=== PATIENT | female | born 1990 | race African-American/Black ===

== ENCOUNTER 2019-08-15 13:34 | Inpatient (IN) | payer BC ==
[2019-08-15 14:39] VITALS: BMI 17.6
--- NOTE | 2019-08-15 15:31 | HP ---
PRIMARY CARE PROVIDER: Unknown. CHIEF COMPLAINT: Bloody diarrhea. HISTORY OF PRESENT ILLNESS: Ms. Alvarenga is a pleasant 29-year-old lady who was seen at [facility] after she was sent here as a direct admission from [facility] on August 15, 2019. She was diagnosed with ulcerative colitis approximately a year ago. She initially was treated with mesalamine, subsequently with Entyvio. She showed good response. However, over the last month, she has had flare of ulcerative colitis. She reports abdominal cramping and bloody diarrhea. She also reports nausea, but no vomiting. She also reports losing 17 pounds over the last month. She reports generalized weakness. She denies any chest pain or shortness of breath. She has been using prednisone and mesalamine enemas as outpatient without significant relief. She was seen in the [facility]ology [facility] today and sent to the hospital for admission. REVIEW OF SYSTEMS: All systems were reviewed and found to be negative except for the pertinent positives mentioned above. PAST MEDICAL HISTORY: Ulcerative colitis. PAST SURGICAL HISTORY: None. SOCIAL HISTORY: No history of tobacco use, alcohol use, or recreational drug use. FAMILY HISTORY: Inflammatory bowel disease in her mother. ALLERGIES: NO KNOWN DRUG ALLERGIES. HOME MEDICATIONS: 1. Bentyl 40 mg 3 times a day. 2. Mesalamine 1.2 g two times a day. 3. Mesalamine cleansing wipes daily. 4. Blisovi 1.5/30 mg tablet daily. 5. Prednisone 40 mg daily. PHYSICAL EXAMINATION: GENERAL: On examination, Ms. Alvarenga is awake and alert, not in acute distress. VITAL SIGNS: Blood pressure is 118/80, pulse is 59, respiratory rate 14, and oxygen saturation 100% on room air. She is afebrile. EYES: No scleral icterus, no conjunctival pallor. ENT: Dry mucosal membranes. No oropharyngeal erythema or exudates. NECK: Supple, nontender, trachea is midline. RESPIRATORY: Accessory muscles of breathing are not active. Chest wall movements are symmetric bilaterally. LUNGS: Clear to auscultation without wheeze, rhonchi, or crepitations. CARDIOVASCULAR: S1 and S2 are heard, regular. Peripheral pulses palpable. ABDOMEN: Soft, nontender, bowel sounds are heard. NEUROLOGIC: Cranial nerves 2 through 12 are intact. MUSCULOSKELETAL: Power is 5/5 in all 4 extremities. SKIN: No rashes or subcutaneous nodules. LYMPHATIC: No cervical lymphadenopathy. PSYCHIATRIC: Normal mood, normal affect, the patient is oriented to person, place, and time. BODY HABITUS: Malnourished, with a BMI of 17.7. LABORATORY DATA: Ms. Alvarenga's labs and investigations were reviewed. There has been no recent blood work done at this hospital. ASSESSMENT AND PLAN: Ms. Alvarenga is a pleasant 29-year-old lady who was seen at [facility] on August 15, 2019. Her problem list includes: 1. Bloody diarrhea: Most likely secondary to ulcerative colitis flare. She will be admitted to the hospital for further management. GI Service will be consulted. She will be started on intravenous fluids and intravenous steroids. We will check blood work including a test, CBC, comprehensive metabolic profile, C-reactive protein, ESR, and QuantiFERON. 2. Moderate protein-calorie malnutrition: Most likely secondary to ulcerative colitis flare. We will consult dietitian for opinion and help with management. 3. Regular diet, vital signs q.4 hours. LEVEL OF RISK: Moderate. LEVEL OF COMPLEXITY: Moderate. Job ID: [id number]
--- NOTE | 2019-08-15 15:31 | CON ---
DATE OF CONSULTATION: 08/15/2019 REASON FOR CONSULTATION: Ulcerative colitis flare. HISTORY OF PRESENT ILLNESS: Mark Alvarenga is a very pleasant 29-year-old woman whom I met back in the summer of 2017. At that time, she had developed gradually worsening diarrhea and hematochezia with negative stool pathogens PCR panel. I performed EGD and colonoscopy in February 2018. The EGD was normal with no evidence of celiac disease, but the colonoscopy showed severe colitis from 0 to 15 cm, then more [id number] colitis throughout the rest of the colon, sparing only the cecum and the terminal ileum. We initially treated with Lialda and a course of prednisone and the patient had some temporary improvement, however, over the next several months, she required multiple prednisone tapers. We finally got her started on Entyvio on 11/13/2018. She initially had great improvement with the Entyvio, her weight stabilized. Abdominal pain and hematochezia resolved. As of mid June, she was still doing quite well. We have had her on every 8 week dosing of Entyvio and also continuing Lialda 4.8 g daily. However, just over the past month or so, the patient has had significant worsening. She started having daily generalized abdominal pain, diarrhea with at least 7 to 8 bowel movements per day and blood with all of her bowel movements. We again checked stool studies on 08/09, which showed a negative stool pathogen panel, but stool WBCs and fecal calprotectin were both elevated with fecal calprotectin at 625.5. She went to the ER in [place] and had a CT of the abdomen and pelvis, which looked okay and evidently labs were unremarkable at that time. We put her on prednisolone 40 mg daily, but despite this, and despite her last Entyvio infusion just being a couple of weeks ago, she has not had any symptomatic improvement. She has lost some weight. She is unable to really leave the house due to the severity for diarrhea. We saw her in clinic today and made the decision to admit to the hospital for IV steroids. REVIEW OF SYSTEMS: Full review of systems including constitutional, head, eyes, ears, nose, throat, GI, , cardiovascular, respiratory, musculoskeletal, and neurologic systems is negative except as noted in the HPI. PAST MEDICAL HISTORY: Asthma, vitamin D deficiency, and ulcerative colitis diagnosed in February 2018. ALLERGIES: NO KNOWN DRUG ALLERGIES. OUTPATIENT MEDICATIONS: 1. Entyvio 300 mg IV every 8 weeks. 2. Mesalamine 4.8 g daily. 3. Mesalamine enemas 4 g one enema per rectum at bedtime. 4. Prednisone 40 mg daily. 5. Dicyclomine 10 mg t.i.d. 6. Oral contraceptive. SOCIAL HISTORY: Alcohol use is occasional. No smoking. No drug use. Her parents have come down to stay with her after she did pretty poorly at home over the holidays. FAMILY HISTORY: Mother has IBS, but no family history of inflammatory bowel disease or GI malignancy. PHYSICAL EXAMINATION: VITAL SIGNS: Temperature 98.2, pulse of 59, blood pressure 118/80, oxygen saturation 100% on room air. GENERAL: A 29-year-old woman, healthy, slender, in no acute distress. SKIN: No rash. No jaundice. EYES: No scleral icterus. Extraocular movements intact. ENT: Mucous membranes moist. No oral lesions. LYMPH: No submandibular or supraclavicular lymphadenopathy. THYROID: Nontender to palpation. HEART: Regular rate and rhythm. LUNGS: Clear to auscultation bilaterally. ABDOMEN: Flat. Bowel sounds present. Soft. Diffuse tenderness to palpation, but no guarding or rebound tenderness. EXTREMITIES: No peripheral edema. VESSELS: Radial pulses 2+ bilaterally. NEURO: Cranial nerves 2 through 12 intact bilaterally. No focal deficits. LABORATORY STUDIES: Recent stool studies over the past month as detailed in the HPI. ASSESSMENT AND PLAN: 1. Ulcerative colitis flare. 2. Hematochezia, secondary to ulcerative colitis flare. 3. Abdominal pain, secondary to ulcerative colitis flare. The patient did well with Entyvio over the past 8 to 9 months until this recent flare over the past few weeks. Due to the severity of her symptoms, we are admitting her for IV steroids. We will start her on IV Solu-Medrol 40 mg every 6 hours. With negative stool studies and characteristic symptoms, I do not really see much point to repeating colonoscopy at this time. We will give her a regular diet. We discussed that given that her recent Entyvio trough levels were therapeutic with negative antibodies, it appears the Entyvio has simply lost effectiveness and that we will need to switch to a different biologic agent. We will be working on getting her switched over to Remicade, hopefully at 10 mg/kg dosing, within the next week or two, expect she will respond to the IV steroids over the next few days in the meantime. Job ID: [id number]
[2019-08-15 15:50] LABS: #Eosinphils 0.2 thou/uL (0.0-0.7); #Lymphocytes 3.1 thou/uL (1.20-3.40); #Monocytes 0.6 thou/uL (0.11-0.59); #Neutrophils 3.5 thou/uL (1.40-6.50); %Basophils 0.5 % (0.0-1.0); %Eosinophils 2.5 % (0.0-10.0); %Lymphocytes 42.1 % (21.0-51.0); %Monocytes 7.9 % (0.0-10.0); %Neutrophils 46.9 % (42.0-75.0); Hemoglobin 13.3 g/dL (12.0-16.0); Mean Corpuscular HGB CONC 32.8 g/dL (32.0-36.0); Mean Corpuscular Hemoglobin 28.4 pg (27.0-31.0); Mean Corpuscular Volume 86.7 fL (78.0-98.0); Mean Platelet Volume 7.6 fL (7.4-10.4); Platelet Count 320 thou/uL (130-400); RBC Distribution Width 12.3 % (11.5-14.5); Red Blood Cell (RBC) Count 4.67 mill/uL (4.20-5.40); White Blood Cell (WBC) Count 7.4 thou/uL (4.8-10.8)
[2019-08-15 15:55] LABS: BHCG - Serum Negative (NEGATIVE); Pregs Control Background? CLEAR/WHITE (CLR/WHITE); Pregs Control Bar Appear? YES (CONTROL BAR)
[2019-08-15 16:11] LABS: ALT (SGPT) 7 U/L (8-55); AST (SGOT) 11 U/L (5-34); Albumin 3.6 g/dL (3.5-5.0); Alkaline Phosphatase 52 U/L (40-110); Anion Gap 13 mmol/L (10-20); BUN (Urea Nitrogen) 13 mg/dL (7.0-18.7); Bilirubin, Total 0.3 mg/dL (0.2-1.2); Calc. Creatinine Clearance 77 mL/min (70-130); Calcium 8.7 mg/dL (7.8-10.44); Carbon Dioxide 26 mmol/L (22-29); Chloride 103 mmol/L (98-107); Estimated GFR-MDRD Greater than 90; Globulin 3.3 g/dL (2.4-3.5); Glucose 75 mg/dL (70-105); Potassium 3.6 mmol/L (3.5-5.1); Protein, Total 6.9 g/dL (6.0-8.3); Sodium 138 mmol/L (136-145)
[2019-08-15] MEDS: Sodium Chloride 0.9% 1,000 ML IV SCH ×2 (16:19→20:15)
[2019-08-15] MEDS: methylPREDNISolone Sod Succ 40 MG VIAL IVP SCH (18:00)
[2019-08-15] MEDS: Morphine 2 MG/ML SYRINGE SLOW IVP PRN (20:16)
[2019-08-16] MEDS: methylPREDNISolone Sod Succ 40 MG VIAL IVP SCH ×5 (00:20→23:07)
[2019-08-16 05:23] LABS: #Lymphocytes 0.4 thou/uL (1.20-3.40); #Monocytes 0.1 thou/uL (0.11-0.59); #Neutrophils 8.5 thou/uL (1.40-6.50); %Lymphocytes 4.8 % (21.0-51.0); %Monocytes 1.5 % (0.0-10.0); %Neutrophils 93.7 % (42.0-75.0); Hemoglobin 11.6 g/dL (12.0-16.0); Mean Corpuscular HGB CONC 32.8 g/dL (32.0-36.0); Mean Corpuscular Hemoglobin 28.4 pg (27.0-31.0); Mean Corpuscular Volume 86.6 fL (78.0-98.0); Mean Platelet Volume 7.8 fL (7.4-10.4); Platelet Count 282 thou/uL (130-400); RBC Distribution Width 12.3 % (11.5-14.5); Red Blood Cell (RBC) Count 4.06 mill/uL (4.20-5.40); White Blood Cell (WBC) Count 9.1 thou/uL (4.8-10.8)
[2019-08-16 05:48] LABS: Anion Gap 10 mmol/L (10-20); BUN (Urea Nitrogen) 12 mg/dL (7.0-18.7); Calc. Creatinine Clearance 88 mL/min (70-130); Calcium 8.5 mg/dL (7.8-10.44); Carbon Dioxide 26 mmol/L (22-29); Chloride 106 mmol/L (98-107); Estimated GFR-MDRD Greater than 90; Glucose 113 mg/dL (70-105); Potassium 4.4 mmol/L (3.5-5.1); Sodium 138 mmol/L (136-145)
--- NOTE | 2019-08-16 08:28 | PDOC.HOSPP ---
- Subjective Encounter Date: 08/16/19 (f/u UC flare) Encounter Time: 08:26 Subjective: Pt reports more back pain today - has been occuring over past few weeks, but noticing more. States stool is better -less bloody, less frequent and last one more formed. Denies any dysuria/hematuria - Objective Vital Signs & Weight: Vital Signs (12 hours) Temp Pulse Resp BP BP Pulse Ox 08/16/19 08:00 100 08/16/19 07:26 97.7 F 69 16 97/56 L 100 08/16/19 04:03 97.6 F 65 14 100/67 100 08/16/19 00:02 97.8 F 70 14 95/61 100 Weight Weight 113 lb I&O: 08/15/19 08/16/19 08/17/19 06:59 06:59 06:59 Intake Total 1000 1680 Balance 1000 1680 Result Diagrams: 08/16/19 05:08 08/16/19 05:08 Hospitalist ROS - Medication Medications: Active Medications Generic Name Dose Route Start Last Admin Trade Name Charbelq PRN Reason Stop Dose Admin Methylprednisolone Sodium Succinate 40 mg 08/15/19 18:00 08/16/19 06:44 Solu-Medrol IVP 40 mg Q6HR ENID Administration Morphine Sulfate 2 mg 08/15/19 19:11 08/15/19 20:16 Morphine SLOW IVP 2 mg Q4H PRN Administration Pain - Exam General Appearance: NAD Heart: RRR, no murmur, no gallops, no rubs Respiratory: CTAB, no wheezes, no rales, no ronchi Gastrointestinal: soft, non-distended, normal bowel sounds Extremities: no cyanosis, no clubbing, no edema Extremities - other findings: back - mild ttp along lower lumbar paraspinal muscles Musculoskeletal: normal tone Psychiatric: normal affect Hosp A/P (1) Ulcerative colitis Code(s): K51.90 - ULCERATIVE COLITIS, UNSPECIFIED, WITHOUT COMPLICATIONS Status: Acute Qualifiers: Ulcerative colitis location: unspecified ulcerative colitis location (2) Anemia Code(s): D64.9 - ANEMIA, UNSPECIFIED Status: Acute (3) Back pain Code(s): M54.9 - DORSALGIA, UNSPECIFIED Status: Acute - Plan UC - appreciate GI consult - on IV steroids Adequately taking PO - d/c IVF Weakness - PT back pain - check UA and order lidocaine patch dvt prophy - ambulatory and scd's gi prophy - not indicated code status full reviewed plan of care with patient/family, no questions or furtehr needs at end of eval
[2019-08-16] MEDS ORDERED: FLU VACC QS2019-20(6MOS UP)/PF 60 MCG/0.5 ML SYRINGE IM ONE (09:00)
[2019-08-16] MEDS: Lidocaine 5% Patch TD SCH (09:54)
[2019-08-16 10:57] LABS: Bilirubin Negative (Negative); Blood, Urine Negative (Negative); Clarity Clear (Clear); Glucose, Urine (Dipstick) 300 mg/dL (Negative); Leukocyte Negative Leu/uL (Negative); Nitrite Negative (Negative); Protein, Urine (Dipstick) 10 mg/dL (Neg-Trace); RBC/HPF 0-3 HPF (0-3); Squamous Epithelial 0-3 HPF (0-3); Urobilinogen Normal mg/dL (Less than 2); WBC/HPF 0-3 HPF (0-3)
[2019-08-16 10:58] LABS: Bacteria/HPF 1+ HPF (None Seen)
[2019-08-16 10:59] LABS: Urine Culture Reflex Yes Yes
--- NOTE | 2019-08-16 14:13 | PRG ---
DATE OF SERVICE: 08/16/2019 SUBJECTIVE: Mark is feeling a bit better today. She has had 5 episodes of hematochezia since midnight, which she feels is slowing down a bit. Abdominal discomfort is better, but she has been having some back pain. She has otherwise remained hemodynamically stable and tolerating her diet. OBJECTIVE: VITAL SIGNS: Temperature 98.0, pulse 83, blood pressure 103/72, 100% oxygen saturation on room air. GENERAL: No acute distress. HEART: Regular rate and rhythm. LUNGS: Clear to auscultation bilaterally. ABDOMEN: Bowel sounds are present. Soft, nontender to palpation. EXTREMITIES: No peripheral edema. LABORATORY STUDIES: Hemoglobin 11.6, WBC 9.1, platelets 282. ESR 33. Sodium 138, potassium 4.4, BUN 12, creatinine 0.78. Serum test is negative. CRP is 1.50. LFTs were all normal on admission yesterday with total bilirubin 0.3, alkaline phosphatase 52, AST 11, ALT 7. ASSESSMENT AND PLAN: 1. Ulcerative colitis flare. 2. Hematochezia, secondary to ulcerative colitis flare. 3. Abdominal pain, secondary to ulcerative colitis flare, mildly improved. The patient is finishing up day 1 of IV steroids, with some possible mild improvement, but ongoing hematochezia. We will continue with the IV steroids for now. If she continues to have gradual improvement, we will not plan on repeat colonoscopy this admission. However, if there is no improvement over the next day, could consider colonoscopy this weekend with biopsies to rule out CMV. Hopefully, she will have further improvement over the next 2 to 3 days and be able to be discharged back on prednisolone 40 mg daily. We are still working on getting her transition from Entyvio to Remicade in the outpatient setting within the next week or two. 4. Dr. Troncoso is covering for GI this weekend. Job ID: [id number]
[2019-08-16] MEDS: Lidocaine Patch Removal 1 EACH TOP SCH (20:58)
[2019-08-16] MEDS: Morphine 2 MG/ML SYRINGE SLOW IVP PRN (22:20)
[2019-08-17] MEDS: methylPREDNISolone Sod Succ 40 MG VIAL IVP SCH ×4 (05:55→23:01)
[2019-08-17 07:03] LABS: Anion Gap 12 mmol/L (10-20); BUN (Urea Nitrogen) 9 mg/dL (7.0-18.7); Calc. Creatinine Clearance 94 mL/min (70-130); Carbon Dioxide 25 mmol/L (22-29); Chloride 105 mmol/L (98-107); Estimated GFR-MDRD Greater than 90; Glucose 123 mg/dL (70-105); Potassium 3.8 mmol/L (3.5-5.1); Sodium 138 mmol/L (136-145)
[2019-08-17 07:48] LABS: Band 13 % (5-11); Hemoglobin 12.1 g/dL (12.0-16.0); Lymphocytes 12 % (21-51); MDiff Complete? YES; Mean Corpuscular HGB CONC 33.8 g/dL (32.0-36.0); Mean Corpuscular Volume 85.9 fL (78.0-98.0); Mean Platelet Volume 7.9 fL (7.4-10.4); Monocytes 3 % (0-10); Neutrophil 72 % (42-75); Platelet Count 321 thou/uL (130-400); RBC Distribution Width 12.2 % (11.5-14.5); Red Blood Cell (RBC) Count 4.17 mill/uL (4.20-5.40); White Blood Cell (WBC) Count 12.2 thou/uL (4.8-10.8)
[2019-08-17] MEDS ORDERED: [UNRECOGNIZED DRUG - OTHER] TOP PRN (08:54)
[2019-08-17] MEDS ORDERED: Acetaminophen 325 MG TAB PO PRN (08:54)
[2019-08-17] MEDS ORDERED: VITAMIN A TOP PRN (08:54)
[2019-08-17] MEDS ORDERED: HYDROcodone/Acetaminophen 5/325 mg Tablet PO PRN (08:54)
--- NOTE | 2019-08-17 08:58 | PDOC.HOSPP ---
- Subjective Encounter Date: 08/17/19 (f/u colitis) Encounter Time: 08:56 Subjective: Pt reports less blood in bm's, more bm's. Back pain improved and able to ambulate and work with PT. Appetite improved and able to take PO yesterday. Some gas pain earlier today-before and with passing it. - Objective Vital Signs & Weight: Vital Signs (12 hours) Temp Pulse Resp BP Pulse Ox 08/17/19 07:36 98.0 F 73 16 107/71 99 08/17/19 03:20 97.9 F 85 18 103/68 98 08/16/19 23:00 98.0 F 75 18 99/64 98 Weight Admit Weight 113 lb Weight 113 lb I&O: 08/16/19 08/17/19 08/18/19 06:59 06:59 06:59 Intake Total 1000 2930 Balance 1000 2930 Result Diagrams: 08/17/19 06:04 08/17/19 06:04 Hospitalist ROS - Medication Medications: Active Medications Generic Name Dose Route Start Last Admin Trade Name Freq PRN Reason Stop Dose Admin Lidocaine 1 patch 08/16/19 09:00 08/16/19 09:54 Lidoderm 5% Patch TD 1 patch 0900 ENID Administration Methylprednisolone Sodium Succinate 40 mg 08/15/19 18:00 08/17/19 05:55 Solu-Medrol IVP 40 mg Q6HR ENID Administration Miscellaneous Medication 1 each 08/16/19 21:00 08/16/19 20:58 Lidocaine Patch Removal TOP 1 each 2100 ENID Administration Morphine Sulfate 2 mg 08/15/19 19:11 08/16/19 22:20 Morphine SLOW IVP 2 mg Q4H PRN Administration Pain - Exam General Appearance: NAD Heart: RRR, no murmur Respiratory: CTAB, no wheezes, no rales, no ronchi Gastrointestinal: soft, non-distended, normal bowel sounds Gastrointestinal - other findings: mild ttp, no palpable abnormalities Extremities: no cyanosis, no clubbing, no edema Musculoskeletal: normal tone Psychiatric: normal affect Hosp A/P (1) Ulcerative colitis Code(s): K51.90 - ULCERATIVE COLITIS, UNSPECIFIED, WITHOUT COMPLICATIONS Status: Acute Qualifiers: Ulcerative colitis location: unspecified ulcerative colitis location (2) Anemia Code(s): D64.9 - ANEMIA, UNSPECIFIED Status: Acute (3) Back pain Code(s): M54.9 - DORSALGIA, UNSPECIFIED Status: Acute - Plan UC - sx improved - appreciate GI consult - on IV steroids, transition to prednisone per GI Add simethicone prn Add tylenol and norco as additional options to manage pain heating pad for abdomen prn vitamin a&d ointment prn UA unremarkable for infection yesterday - follow culture that was performed reflexively dvt prophy - ambulatory and scd's gi prophy - not indicated code status full anticipate discharge when able to transition to prednisone - in the next few days
[2019-08-17] MEDS: HYDROcodone/Acetaminophen 5/325 mg Tablet PO PRN ×3 (09:39→23:29)
[2019-08-17] MEDS: Simethicone Chewable 80 MG TAB PO PRN ×2 (09:39→15:12)
[2019-08-17] MEDS: Lidocaine 5% Patch TD SCH (10:14)
--- NOTE | 2019-08-17 16:34 | PRG ---
DATE OF SERVICE: 08/17/2019 REASON FOR CONSULTATION: Ulcerative colitis flare. SUBJECTIVE: The patient states that she is feeling better today with decreased abdominal pain when compared to yesterday and now reaches a severity of 3 to 4/10. She also has had approximately 6 bowel movements over the last 24 hours, which has decreased in terms of her frequency as well as the amount of blood per bowel movement has also decreased as well. She has been able to get out of bed and ambulate both by herself and with physical therapy. Otherwise, she denies any nausea, vomiting, fevers, chills, hematemesis, melena, dysphagia, or odynophagia. OBJECTIVE: VITAL SIGNS: Temperature 98, pulse 86, blood pressure 98/59, respiratory rate 16, saturating 99% on room air. GENERAL: The patient was lying in bed, in no acute distress. Alert and oriented x4. CARDIOVASCULAR: Regular rate and rhythm. RESPIRATORY: Clear to auscultation bilaterally. ABDOMEN: Normoactive bowel sounds. Soft, nondistended, mild tenderness to palpation in all abdominal quadrants. EXTREMITIES: No cyanosis, clubbing, or edema. LABORATORY DATA: CBC with a white blood cell count of 12.2, hemoglobin 12.1, hematocrit 35.8, platelets 321. Chemistry with a sodium of 138, potassium 3.8, chloride 105, CO2 of 25, BUN 9, creatinine 0.73, glucose 123. IMAGING DATA: No current GI imaging is available for review. ASSESSMENT AND PLAN: The patient is a 29-year-old female with past medical history of ulcerative colitis, presenting with a probable ulcerative colitis flare. Ulcerative colitis flare. The patient is presenting with a recent history of oral steroids as an outpatient in addition to biologic therapy (Entyvio) and had continued to have worsening abdominal pain and hematochezia despite these measures. She was ultimately admitted to the hospital for probably ulcerative colitis flare and has been responding well to administration of IV steroids indicated by decreased frequency of bowel movements, decreased abdominal pain, and decreased frequency of hematochezia. At this time, colonoscopy is not currently planned, given her improvement with IV steroids, which should be worsening if the presence of CMV or HSV is within her colon. RECOMMENDATIONS: 1. Would continue to trend her H and H and transfuse as necessary to maintain H and H of 7/21. 2. Continue to monitor clinically for signs of active GI bleeding. 3. Would continue with IV steroid administration with methylprednisolone 40 mg q.6. 4. Pain control per primary team. 5. Would avoid any NSAIDs during this admission. We will continue to follow. Please call with any questions. Job ID: [id number]
[2019-08-17] MEDS: Lidocaine Patch Removal 1 EACH TOP SCH (22:12)
[2019-08-18] MEDS: Simethicone Chewable 80 MG TAB PO PRN ×3 (04:12→15:57)
[2019-08-18] MEDS: methylPREDNISolone Sod Succ 40 MG VIAL IVP SCH ×4 (05:43→23:03)
--- NOTE | 2019-08-18 09:20 | PDOC.HOSPP ---
- Subjective Encounter Date: 08/18/19 (f/u UC flare) Encounter Time: 09:18 Subjective: 29 y/o female admitted on Aug 15 for severe ulcerative colitis flare despite trial of outpatient management. Pt denies any pain currently, reports she feels better than she has in weeks. Denies any n/v. 6 bm's yesterday, less blood. Having episodes of abd pain/ cramping/gas pain that last a few hours. - Objective Vital Signs & Weight: Vital Signs (12 hours) Temp Pulse Resp BP BP Pulse Ox 08/18/19 07:51 97.9 F 67 14 105/68 99 08/18/19 03:29 98.3 F 64 18 103/64 97 08/17/19 23:18 98.0 F 66 18 117/76 98 08/17/19 21:46 98.5 F 68 18 109/72 98 Weight Admit Weight 113 lb Weight 113 lb I&O: 08/17/19 08/18/19 08/19/19 06:59 06:59 06:59 Intake Total 2930 2440 Balance 2930 2440 Result Diagrams: 08/17/19 06:04 08/17/19 06:04 Hospitalist ROS - Medication Medications: Active Medications Generic Name Dose Route Start Last Admin Trade Name Freq PRN Reason Stop Dose Admin Hydrocodone Bitart/Acetaminophen 2 tab 08/17/19 08:54 08/17/19 23:29 [place] 5/325 PO 2 tab Q4H PRN Administration Moderate to Severe Pain (6-10) Lidocaine 1 patch 08/16/19 09:00 08/17/19 10:14 Lidoderm 5% Patch TD 1 patch 0900 ENID Administration Methylprednisolone Sodium Succinate 40 mg 08/15/19 18:00 08/18/19 05:43 Solu-Medrol IVP 40 mg Q6HR ENID Administration Miscellaneous Medication 1 each 08/16/19 21:00 08/17/19 22:12 Lidocaine Patch Removal TOP 1 each 2099 ENID Administration Morphine Sulfate 2 mg 08/15/19 19:11 08/16/19 22:20 Morphine SLOW IVP 2 mg Q4H PRN Administration Pain Simethicone 80 mg 08/17/19 08:54 08/18/19 04:12 Mylicon Chewable PO 80 mg PCHS PRN Administration Gas Pain - Exam General Appearance: NAD Heart: RRR, no murmur Respiratory: CTAB, no wheezes, no rales, no ronchi Gastrointestinal: soft, non-tender, non-distended Extremities: no cyanosis, no clubbing, no edema Psychiatric: normal affect Hosp A/P (1) Ulcerative colitis Code(s): K51.90 - ULCERATIVE COLITIS, UNSPECIFIED, WITHOUT COMPLICATIONS Status: Acute Qualifiers: Ulcerative colitis location: unspecified ulcerative colitis location (2) Anemia Code(s): D64.9 - ANEMIA, UNSPECIFIED Status: Acute (3) Back pain Code(s): M54.9 - DORSALGIA, UNSPECIFIED Status: Acute (4) Underweight Code(s): R63.6 - UNDERWEIGHT Status: Acute - Plan UC - appreciate GI consultcontinues to improve - adjustment of IV to PO steroids per GI Continue current meds recheck CBC f/u request to media monitor for guidance on diet Urine culture - obtained due to back pain - young culture. Pt is asx, will continue to monitor. No indication for antibiotics at this time. Reviewed this evening and final result mixed skin roseline. dvt prophy - ambulatory and scd's gi prophy - not indicated code status full anticipate discharge in the next few days per GI
[2019-08-18] MEDS: Lidocaine 5% Patch TD SCH (09:27)
--- NOTE | 2019-08-18 11:47 | PRG ---
DATE OF SERVICE: 08/18/2019 REASON FOR CONSULTATION: Ulcerative colitis flare. SUBJECTIVE: The patient states that her abdominal pain is improved when compared to yesterday, now currently reaching a severity of 1/10, especially with increased physical activity. She also notes that she has had approximately 4 semi-solid stools over the last 24 hours, although one last night was a larger bloody bowel movement. The amount of blood on the subsequent bowel movements has been lessened as well. Otherwise, she denies any nausea, vomiting, fevers, chills, hematemesis, melena, dysphagia or odynophagia. OBJECTIVE: VITAL SIGNS: Temperature 97.9, pulse 67, blood pressure 105/68, respiratory rate 14, and saturating 99% on room air. GENERAL: The patient was lying in bed, in no acute distress. Alert and oriented x4. CARDIOVASCULAR: Regular rate and rhythm. RESPIRATORY: Clear to auscultation bilaterally. ABDOMEN: Normoactive bowel sounds. Soft, nondistended, mild tenderness to palpation in the lower abdominal quadrants. EXTREMITIES: No cyanosis, clubbing, or edema. LABORATORY DATA: No current labs are available for review. IMAGING DATA: No current GI imaging is available for review. ASSESSMENT AND PLAN: The patient is a 29-year-old female with past medical history of ulcerative colitis, presenting with an ulcerative colitis flare. Ulcerative colitis flare. The patient is presenting with worsening abdominal pain, diarrhea, and hematochezia over the last 4 to 6 weeks consistent with an ulcerative colitis flare. However, since being admitted to the hospital and placed on IV steroids, she has had significant improvement in her abdominal pain, hematochezia, and diarrhea, indicating response to treatment and likely not an infectious etiology contributing to her current flare. At the current time, colonoscopy is not planned given her improvement with IV steroids and would be reserved only if the patient does not continue to improve. RECOMMENDATIONS: 1. We would continue to trend her H and H and transfuse as necessary to maintain an H and H of 7/21. 2. Continue to monitor clinically for signs of active GI bleeding. 3. We would continue IV methylprednisolone 40 mg q.6 with plans to transfer the patient to oral prednisone possibly tomorrow. 4. Pain control per primary team. 5. Would avoid any NSAIDs during this admission. 6. Would avoid a higher fiber diet as well given the propensity to increase intraluminal gas and thereby increased pain/bloating. We will continue to follow. Please call with any questions. Job ID: [id number]
[2019-08-18] MEDS: HYDROcodone/Acetaminophen 5/325 mg Tablet PO PRN (18:25)
[2019-08-18] MEDS: Lidocaine Patch Removal 1 EACH TOP SCH (22:39)
[2019-08-19] MEDS: methylPREDNISolone Sod Succ 40 MG VIAL IVP SCH ×2 (05:39→12:16)
[2019-08-19 06:09] LABS: Band 42 % (5-11); Hemoglobin 11.7 g/dL (12.0-16.0); Lymphocytes 10 % (21-51); MDiff Complete? YES; Mean Corpuscular HGB CONC 32.4 g/dL (32.0-36.0); Mean Corpuscular Hemoglobin 28.3 pg (27.0-31.0); Mean Corpuscular Volume 87.3 fL (78.0-98.0); Mean Platelet Volume 7.7 fL (7.4-10.4); Monocytes 3 % (0-10); Neutrophil 44 % (42-75); Platelet Count 266 thou/uL (130-400); RBC Distribution Width 12.1 % (11.5-14.5); Reactive Lymphocytes 1 % (0-10); Red Blood Cell (RBC) Count 4.12 mill/uL (4.20-5.40)
[2019-08-19 07:28] VITALS: TEMP 98
[2019-08-19] MEDS: Lidocaine 5% Patch TD SCH (08:44)
--- NOTE | 2019-08-19 09:09 | PDOC.HOSPP ---
- Subjective Encounter Date: 08/19/19 Encounter Time: 10:45 Subjective: Patient feeling much better. About 5 BM in past 24 hours. Less blood. No abd pain except with bowel movement. No fever/chills. - Objective Vital Signs & Weight: Vital Signs (12 hours) Temp Pulse Resp BP Pulse Ox 08/19/19 07:25 98.0 F 84 12 104/66 100 08/19/19 00:52 98 F 67 16 112/70 99 Weight Admit Weight 113 lb Weight 113 lb I&O: 08/18/19 08/19/19 08/20/19 06:59 06:59 06:59 Intake Total 2440 1600 Balance 2440 1600 Result Diagrams: 08/19/19 04:32 08/17/19 06:04 Hospitalist ROS - Review of Systems Constitutional: denies: fever, chills Respiratory: denies: cough, dry, shortness of breath Cardiovascular: denies: chest pain, palpitations, orthopnea Gastrointestinal: denies: nausea, vomiting, abdominal pain - Medication Medications: Active Medications Generic Name Dose Route Start Last Admin Trade Name Freq PRN Reason Stop Dose Admin Hydrocodone Bitart/Acetaminophen 2 tab 08/17/19 08:54 08/18/19 18:25 Orrum 5/325 PO 2 tab Q4H PRN Administration Moderate to Severe Pain (6-10) Lidocaine 1 patch 08/16/19 09:00 08/19/19 08:44 Lidoderm 5% Patch TD 1 patch 0900 ENID Administration Methylprednisolone Sodium Succinate 40 mg 08/15/19 18:00 08/19/19 05:39 Solu-Medrol IVP 40 mg Q6HR ENID Administration Miscellaneous Medication 1 each 08/16/19 21:00 08/18/19 22:39 Lidocaine Patch Removal TOP 1 each 2100 ENID Administration Morphine Sulfate 2 mg 08/15/19 19:11 08/16/19 22:20 Morphine SLOW IVP 2 mg Q4H PRN Administration Pain Simethicone 80 mg 08/17/19 08:54 08/18/19 15:57 Mylicon Chewable PO 80 mg PCHS PRN Administration Gas Pain - Exam General Appearance: NAD, awake alert Eye: anicteric sclera ENT: moist mucosa Heart: RRR, no murmur, no gallops, no rubs Respiratory: CTAB, no wheezes, no rales, no ronchi Gastrointestinal: soft, non-tender, non-distended, normal bowel sounds Psychiatric: normal affect, normal behavior, A&O x 3 Hosp A/P (1) Ulcerative colitis Code(s): K51.90 - ULCERATIVE COLITIS, UNSPECIFIED, WITHOUT COMPLICATIONS Status: Acute Qualifiers: Ulcerative colitis location: unspecified ulcerative colitis location (2) Anemia Code(s): D64.9 - ANEMIA, UNSPECIFIED Status: Acute (3) Back pain Code(s): M54.9 - DORSALGIA, UNSPECIFIED Status: Acute (4) Underweight Code(s): R63.6 - UNDERWEIGHT Status: Acute - Plan Symptoms markedly improved on IV steroids, transition to oral when ok with GI and then can discharge H/H dropped minimally, no need for transfusion at this time No evidence UTI or infectious cause to colitis
[2019-08-19 10:53] VITALS: BP 100/65
--- NOTE | 2019-08-19 14:02 | PRG ---
DATE OF SERVICE: 08/19/2019 SUBJECTIVE: Mark has done progressively better over the course of the weekend. Today, she is feeling pretty good. Abdominal discomfort is intermittent and only 1 or 2/10. She had four bowel movements over the course of the past 24 hours. There is still some blood, but this seems to be clearing up as well. Her appetite has been good and labs all stable. OBJECTIVE: VITAL SIGNS: Temperature 98.0, pulse 82, blood pressure 100/65, and 100% oxygen saturation on room air. GENERAL: No acute distress. HEART: Regular rate and rhythm. LUNGS: Clear to auscultation bilaterally. ABDOMEN: Soft, nontender to palpation. EXTREMITIES: No peripheral edema. LABORATORY STUDIES: WBC 10.0, hemoglobin 11.7, platelets 266. Sodium 138, potassium 3.8, BUN 9, creatinine 0.73, glucose 123. ASSESSMENT AND PLAN: 1. Ulcerative colitis flare. 2. Abdominal pain, improved. 3. Hematochezia, also improved, secondary to ulcerative colitis flare. The patient is currently on day 4 of IV steroids with significant improvement over the past few days. At this point, I think it would be reasonable to transition to prednisone 40 mg daily and discharge home. She will continue on prednisolone 40 mg daily until we have her started on Remicade. We are working on this from the clinic side, hopefully we will be able to get her first infusion in the next week or two. In the meantime, she can take Imodium p.r.n. as well as dicyclomine p.r.n., and we will restart her oral mesalamine when she gets home as well. We will follow up closely with her in clinic. Job ID: [id number]
[2019-08-19] MEDS: Simethicone Chewable 80 MG TAB PO PRN (14:11)
--- NOTE | 2019-08-20 04:08 | DIS ---
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 Dorado. REASON FOR ADMISSION: Flare of ulcerative colitis refractory to outpatient treatment. DIAGNOSES AT DISCHARGE: 1. Ulcerative colitis flare, improved. 2. Anemia secondary to blood loss, mild, stable. 3. Back pain, resolved. 4. Underweight. PROCEDURES: None. CONSULTATIONS: Gastroenterology, Dr. Dorado. SUMMARY OF HOSPITAL COURSE: This is a 29-year-old woman with a history of ulcerative colitis, who was admitted as a direct admission from the [facility]ology [facility]. She was diagnosed with ulcerative colitis one year ago, treated with mesalamine, subsequently with Entyvio. She was doing well until the last month. She had a flare with abdominal cramping, pain, bloody diarrhea, and lost about 17 pounds over the last month and with generalized weakness. This flare was refractory to prednisone and mesalamine as an outpatient, so she was admitted in the clinic. The patient was given IV steroids during hospitalization with marked improvement in her symptoms. She had decreasing blood in her bowel movements. She had less than 4 bowel movements over the last 24 hours and no further pain except right during bowel movement. She also not had any fevers or evidence of infection during hospitalization. On the day of discharge, Dr. Dorado switched her back over to have her follow up in her clinic get her started on Remicade. DISCHARGE MANAGEMENT: Discharged home. FOLLOWUP: Follow up with Dr. Dorado in the next week. ACTIVITY: As tolerated. DIET: Regular diet. MEDICATIONS: Resume home medications. 1. Prednisone 40 mg daily. 2. Mesalamine 1.2 g p.o. twice a day. 3. Mesalamine enemas as needed daily. 4. Dicyclomine as needed. 5. Norethindrone/e. estradiol/iron tablets one tablet daily. Job ID: [id number]
[2019-08-21 13:11] LABS: QuantiFERON-TB Gold Plus Negative (Negative)
== END 2019-08-19 16:05 | disposition home or self-care (01) | DRG 386 ==
LOC: SJJU 13:34
PROVIDERS: ADMIT Internal Medicine; ATTEND Internal Medicine
DX: K51.911 Ulcerative colitis, unspecified with rectal bleeding (principal); Z68.1 Body mass index [BMI] 19.9 or less, adult; E44.0 Moderate protein-calorie malnutrition; K51.90 Ulcerative colitis, unspecified, without complications; M54.9 Dorsalgia, unspecified; D50.0 Iron deficiency anemia secondary to blood loss (chronic); Z79.899 Other long term (current) drug therapy; Z79.52 Long term (current) use of systemic steroids
CPT/HCPCS: 36415; 80048; 80053; 81001; 84703; 85025; 85652; 86140; 86480; 87086; 90471; 90686; G0008; J2270; J2920